=== PATIENT | female | born 1945 | race Hispanic/Latino ===

== ENCOUNTER 2019-10-02 17:28 | Emergency (ER) | payer MEDICARE, OTHER ==
[2019-10-02 19:40] LABS: CREATININE 0.9 mg/dL (0.5-1.5); POTASSIUM 3.7 mmol/L (3.5-5.1)
[2019-10-02 19:45] LABS: ALBUMIN 3.3 g/dL (3.5-5.0); BILIRUBIN,TOTAL 0.3 mg/dL (0.2-1.0); TOTAL PROTEIN, SERUM 8.2 g/dL (6.0-8.3)
[2019-10-02 19:53] LABS: BASOPHILS % (AUTO) 0.5 % (0.0-5.0); EOSINOPHILS % (AUTO) 2.5 % (0.0-8.0); LYMPHOCYTES % (AUTO) 16.9 % (21.0-51.0); MEAN CORPUSCULAR HEMOGLOBIN 29.6 pg (27.0-33.0); MEAN CORPUSCULAR HGB CONC 33.2 g/dL (32.0-36.0); MEAN CORPUSCULAR VOLUME 88.9 fL (79-99); MONOCYTES % (AUTO) 8.6 % (3.0-13.0); NEUTROPHILS % (AUTO) 70.6 % (40.0-77.0); PLATELET COUNT (AUTO) 367 K/uL (130-400); RED BLOOD CELL COUNT(AUTO) 4.16 MIL/uL (4.00-5.50); RED CELL DISTRIBUTION WIDTH 13.3 % (11.0-15.5); WHITE BLOOD COUNT (AUTO) 11.6 K/uL (4.8-10.8)
[2019-10-02] MEDS ORDERED: CLINDAMYCIN HCL 150 MG CAP ONE (20:40)
== END 2019-10-02 20:46 | disposition home or self-care (01) ==
LOC: EDH 17:28
DX: L03.115 Cellulitis of right lower limb (principal); E11.9 Type 2 diabetes mellitus without complications; I10 Essential (primary) hypertension; E78.00 Pure hypercholesterolemia, unspecified; Z98.890 Other specified postprocedural states; Z88.6 Allergy status to analgesic agent
CPT/HCPCS: 36415; 80053; 85025; 85651; 86140; 87070; 87076; 87077; 87186; 93971

== ENCOUNTER → 2019-11-18 | Outpatient (CLI) | payer MEDICARE | END | disposition home or self-care (01) | LOC: RAH 09:06 | PROVIDERS: ATTEND Family Medicine | DX: K76.0 Fatty (change of) liver, not elsewhere classified (principal); N28.1 Cyst of kidney, acquired; Z90.49 Acquired absence of other specified parts of digestive tract | CPT/HCPCS: 76700 ==

== ENCOUNTER 2024-02-23 15:57 | Inpatient (IN) | payer MEDICARE, OTHER ==
[~2024-02-23] VITALS: Ht 165.1 cm; Wt 95.3 kg
[2024-02-23 17:20] LABS: BASOPHILS # (AUTO) 0.08 K/uL (0.00-0.20); BASOPHILS % (AUTO) 0.4 % (0.0-5.0); EOSINOPHILS # (AUTO) 0.08 K/uL (0.00-0.70); EOSINOPHILS % (AUTO) 0.4 % (0.0-8.0); HEMATOCRIT 36.3 % (36-48); IMMATURE GRANULOCYTE ABSOLUTE 0.08 K/uL (0-1); LYMPHOCYTES # (AUTO) 1.6 K/uL (1.0-4.8); LYMPHOCYTES % (AUTO) 8.5 % (21.0-51.0); MEAN CORPUSCULAR HEMOGLOBIN 31.4 pg (27.0-33.0); MEAN CORPUSCULAR HGB CONC 34.4 g/dL (32.0-36.0); MEAN CORPUSCULAR VOLUME 91.2 fL (79-99); MONOCYTES # (AUTO) 0.8 K/uL (0.1-1.0); MONOCYTES % (AUTO) 4.5 % (3.0-13.0); NEUTROPHILS # (AUTO) 15.7 K/uL (1.8-7.7); NEUTROPHILS % (AUTO) 85.8 % (40.0-77.0); PLATELET COUNT (AUTO) 291 K/uL (130-400); RED BLOOD CELL COUNT(AUTO) 3.98 MIL/uL (4.00-5.50); RED CELL DISTRIBUTION WIDTH 13.4 % (11.0-15.5); WHITE BLOOD COUNT (AUTO) 18.3 K/uL (4.8-10.8)
[2024-02-23 17:30] LABS: POTASSIUM 3.7 mmol/L (3.5-5.1)
[2024-02-23] MEDS ORDERED: 0.9%NACL 1000ML 1,710 ML IV ONE (17:30)
[2024-02-23 17:36] LABS: ALBUMIN 3.3 g/dL (3.5-5.0); BILIRUBIN,TOTAL 0.6 mg/dL (0.2-1.0); TOTAL PROTEIN, SERUM 7.1 g/dL (6.0-8.3)
[2024-02-23] MEDS: CEFTRIAXONE 2GM VIAL IVPB ONE (18:51)
[2024-02-23 20:45] LABS: ADD UA MICROSCOPIC YES; APPEARANCE,URINE CLEAR (CLEAR); BILIRUBIN,URINE NEGATIVE (NEGATIVE); COLOR,URINE COLORLESS (YELLOW); GLUCOSE, URINE (UA) NEGATIVE (NEGATIVE); KETONES,URINE NEGATIVE (NEGATIVE); LEUKOCYTE ESTERASE ,URINE NEGATIVE Leu/uL (NEGATIVE); NITRATE,URINE NEGATIVE (NEGATIVE); OCCULT BLOOD,URINE NEGATIVE (NEGATIVE); PROTEIN,URINE NEGATIVE (NEGATIVE); UROBILINOGEN,URINE 0.2 mg/dL (0.2-1.0)
[2024-02-23 20:46] LABS: BACTERIA,URINE FEW /HPF (None Seen); RBC,URINE 0-1 /HPF (0-1); SQUAMOUS EPITHELIAL CELL,UR RARE /HPF (0-2); WBC,URINE 0-1 /HPF (0-1)
[2024-02-23] MEDS ORDERED: DEXTROSE 50%-WATER 50 ML DISP.SYRIN IV PRN (21:30)
[2024-02-23] MEDS ORDERED: ONDANSETRON 4MG INJ IVP PRN (21:30)
[2024-02-23] MEDS ORDERED: GLUCAGON 1MG KIT 1 MG ML IM PRN (21:30)
[2024-02-23] MEDS ORDERED: ACETAMINOPHEN 325 MG TAB PO PRN (21:30)
[2024-02-23] MEDS: 0.9%NACL 1000ML 1,000 ML IV SCH (22:24)
[2024-02-23] MEDS: NEOMY SULF/BACITRA/POLYMYXIN B 1 EACH PACKET TP ONE (22:28)
[2024-02-24] VITALS (10 sets, daily range): BP systolic 130–160; BP diastolic 46–97; PULSE 60–73; RESP 16–20; O2SAT 98
[2024-02-24] MEDS ORDERED: QUET25TA36 PO (01:32)
[2024-02-24] MEDS ORDERED: ESOM20CA60 PO (01:32)
[2024-02-24] MEDS ORDERED: METO100T14 PO (01:32)
[2024-02-24] MEDS ORDERED: VALS80TA30 PO (01:32)
[2024-02-24] MEDS ORDERED: HYDR12.54 PO (01:32)
[2024-02-24] MEDS ORDERED: LEVO50CA4 PO (01:32)
[2024-02-24] MEDS ORDERED: ESCI5TAB16 PO (01:32)
[2024-02-24] MEDS ORDERED: ASPI-1197 PO (01:32)
[2024-02-24] MEDS ORDERED: AMLO-258 PO (01:32)
[2024-02-24] MEDS ORDERED: ATOR40TA69 PO (01:32)
[2024-02-24] MEDS ORDERED: CHOL2000 PO (01:36)
[2024-02-24] MEDS ORDERED: TIRZ7.5P SQ (01:36)
[2024-02-24 04:26] LABS: BASOPHILS # (AUTO) 0.08 K/uL (0.00-0.20); BASOPHILS % (AUTO) 0.5 % (0.0-5.0); EOSINOPHILS # (AUTO) 0.11 K/uL (0.00-0.70); EOSINOPHILS % (AUTO) 0.8 % (0.0-8.0); HEMATOCRIT 33.8 % (36-48); IMMATURE GRANULOCYTE ABSOLUTE 0.06 K/uL (0-1); LYMPHOCYTES # (AUTO) 2.3 K/uL (1.0-4.8); LYMPHOCYTES % (AUTO) 15.6 % (21.0-51.0); MEAN CORPUSCULAR HEMOGLOBIN 31.6 pg (27.0-33.0); MEAN CORPUSCULAR HGB CONC 35.2 g/dL (32.0-36.0); MEAN CORPUSCULAR VOLUME 89.7 fL (79-99); MONOCYTES % (AUTO) 6.5 % (3.0-13.0); NEUTROPHILS # (AUTO) 11.1 K/uL (1.8-7.7); NEUTROPHILS % (AUTO) 76.2 % (40.0-77.0); PLATELET COUNT (AUTO) 239 K/uL (130-400); RED BLOOD CELL COUNT(AUTO) 3.77 MIL/uL (4.00-5.50); RED CELL DISTRIBUTION WIDTH 13.4 % (11.0-15.5); WHITE BLOOD COUNT (AUTO) 14.6 K/uL (4.8-10.8)
[2024-02-24 04:45] LABS: BILIRUBIN,TOTAL 0.6 mg/dL (0.2-1.0); CREATININE 0.8 mg/dL (0.5-1.0); MAGNESIUM 1.6 mg/dL (1.80-2.40); TOTAL PROTEIN, SERUM 6.6 g/dL (6.0-8.3)
[2024-02-24 05:15] LABS: POTASSIUM 2.9 mmol/L (3.5-5.1)
[2024-02-24] MEDS ORDERED: POTASSIUM CHLORIDE 10% ELIXIR 20 MEQ/15 ML UDCUP PO PRN (05:30)
[2024-02-24] MEDS: POTASSIUM CHLORIDE 20MEQ/100ML 100 ML IV PRN (05:44)
[2024-02-24] MEDS: KCL 20 MEQ ERTAB PO PRN (05:45)
[2024-02-24] MEDS: MAGNESIUM 2GM PREMIX 50ML 50 ML IV PRN (05:45)
[2024-02-24] MEDS: INSULIN HUMULIN R 100 UNIT/ML 3ML SQ SCH (06:04)
[2024-02-24] MEDS: ENOXAPARIN SODIUM 60 MG/0.6 ML SQ SCH (09:04)
[2024-02-24] MEDS ORDERED: IOHEXOL-350 75 ML VIAL IV ONE (10:30)
[2024-02-24 11:18] LABS: AMYLASE 66 U/L (25-115)
[2024-02-24] MEDS: CEFTRIAXONE 2GM VIAL IVPB SCH (16:43)
[2024-02-24] MEDS: QUETIAPINE FUMARATE 25 MG TAB PO SCH (20:24)
[2024-02-24] MEDS: ATORVASTATIN 40 MG TABLET PO SCH (20:24)
[2024-02-24] MEDS: METOPROLOL TARTRATE 50 MG TAB PO SCH (20:24)
[2024-02-24] MEDS: Vitamin D3 50 MCG PO SCH (20:26)
[2024-02-24] MEDS ORDERED: NON-FORMULARY MEDICATION 1 EACH (Metoprolol Tartrate 100 MG) PO SCH (21:00)
[2024-02-25] VITALS (7 sets, daily range): BP systolic 109–157; BP diastolic 41–73; PULSE 60–81; RESP 16–18; O2SAT 96–98
[2024-02-25 04:01] LABS: BASOPHILS # (AUTO) 0.07 K/uL (0.00-0.20); BASOPHILS % (AUTO) 0.7 % (0.0-5.0); EOSINOPHILS # (AUTO) 0.39 K/uL (0.00-0.70); EOSINOPHILS % (AUTO) 3.9 % (0.0-8.0); IMMATURE GRANULOCYTE ABSOLUTE 0.04 K/uL (0-1); LYMPHOCYTES # (AUTO) 2.8 K/uL (1.0-4.8); LYMPHOCYTES % (AUTO) 27.8 % (21.0-51.0); MEAN CORPUSCULAR HEMOGLOBIN 31.1 pg (27.0-33.0); MEAN CORPUSCULAR HGB CONC 35.2 g/dL (32.0-36.0); MEAN CORPUSCULAR VOLUME 88.5 fL (79-99); MONOCYTES # (AUTO) 0.9 K/uL (0.1-1.0); MONOCYTES % (AUTO) 8.7 % (3.0-13.0); NEUTROPHILS # (AUTO) 5.8 K/uL (1.8-7.7); NEUTROPHILS % (AUTO) 58.5 % (40.0-77.0); PLATELET COUNT (AUTO) 251 K/uL (130-400); RED BLOOD CELL COUNT(AUTO) 3.73 MIL/uL (4.00-5.50); RED CELL DISTRIBUTION WIDTH 13.6 % (11.0-15.5); WHITE BLOOD COUNT (AUTO) 9.9 K/uL (4.8-10.8)
[2024-02-25 04:31] LABS: BILIRUBIN,DIRECT 0.1 mg/dL (0.0-0.3); BILIRUBIN,TOTAL 0.6 mg/dL (0.2-1.0); CREATININE 0.7 mg/dL (0.5-1.0); MAGNESIUM 1.8 mg/dL (1.80-2.40); POTASSIUM 3.5 mmol/L (3.5-5.1); THYROID STIMULATING HORMONE 1.48 uIU/mL (0.36-3.74); TOTAL PROTEIN, SERUM 6.5 g/dL (6.0-8.3)
[2024-02-25] MEDS: LEVOTHYROXINE 50 MCG TABLET PO SCH (05:40)
[2024-02-25] MEDS ORDERED: NON-FORMULARY MEDICATION 1 EACH (Levothyroxine Sodium (Levothyroxine) 50 MCG) PO SCH (07:30)
[2024-02-25] MEDS: POLYETHYLENE GLYCOL 3350 17 GM POWD.PACK PO SCH (08:48)
[2024-02-25] MEDS: AMLODIPINE 5 MG TAB PO SCH (08:48)
[2024-02-25] MEDS: PANTOPRAZOLE 40 MG TAB DR PO SCH (08:49)
[2024-02-25] MEDS: CITALOPRAM 20 MG TABLET PO SCH (08:49)
[2024-02-25] MEDS: HYDROCHLOROTHIAZIDE 25 MG TABLET PO SCH (08:49)
[2024-02-25] MEDS: LOSARTAN 50 MG TABLET PO SCH (08:49)
[2024-02-25] MEDS: LACTULOSE 20 GM/30 ML UDCUP PO SCH (08:50)
[2024-02-25] MEDS: ASPIRIN 81MG CHEW TAB PO SCH (08:50)
[2024-02-25] MEDS ORDERED: ESCITALOPRAM OXALATE 5 MG PO SCH (09:00)
[2024-02-25] MEDS ORDERED: VALSARTAN 80 MG PO SCH (09:00)
[2024-02-25] MEDS ORDERED: NON-FORMULARY MEDICATION 1 EACH (Amlodipine Besylate 10 MG) PO SCH (09:00)
[2024-02-25] MEDS ORDERED: ESOMEPRAZOLE MAGNESIUM 20 MG PO SCH (09:00)
[2024-02-25] MEDS ORDERED: NON-FORMULARY MEDICATION 1 EACH (Hydrochlorothiazide 12.5 MG) PO SCH (09:00)
[2024-02-25] MEDS: NICOTINE 14 MG/ 24 HR PATCH TD SCH (14:59)
[2024-02-26] VITALS: BP 147/86; PULSE 66; RESP 20
[2024-02-26] MEDS ORDERED: LACTULOSE 20 GM/30 ML UDCUP PO PRN (01:00)
[2024-02-26 04:00] VITALS: BP 142/59; PULSE 65; RESP 19
[2024-02-26 05:24] LABS: HEMATOCRIT 33.9 % (36-48); MEAN CORPUSCULAR HEMOGLOBIN 31.5 pg (27.0-33.0); MEAN CORPUSCULAR HGB CONC 34.5 g/dL (32.0-36.0); MEAN CORPUSCULAR VOLUME 91.4 fL (79-99); RED BLOOD CELL COUNT(AUTO) 3.71 MIL/uL (4.00-5.50); RED CELL DISTRIBUTION WIDTH 13.4 % (11.0-15.5); WHITE BLOOD COUNT (AUTO) 9.1 K/uL (4.8-10.8)
[2024-02-26 05:48] LABS: CREATININE 0.8 mg/dL (0.5-1.0); MAGNESIUM 2.2 mg/dL (1.80-2.40); POTASSIUM 3.3 mmol/L (3.5-5.1)
[2024-02-26 08:00] VITALS: BP 157/59; PULSE 57; RESP 17; O2SAT 96
[2024-02-26 12:00] VITALS: BP 151/58; PULSE 63; RESP 17
[2024-03-02] MEDS ORDERED: MOUNJARO 7.5 MG SQ SCH (09:00)
== END 2024-02-26 18:20 | disposition home or self-care (01) | DRG 74 ==
LOC: EDH 15:57 → EDHIP 21:11 → 4DH 02-24 00:04
PROVIDERS: ADMIT Internal Medicine Infectious Disease; ATTEND Internal Medicine Infectious Disease
DX: G90.8 Other disorders of autonomic nervous system (principal); E11.9 Type 2 diabetes mellitus without complications; I10 Essential (primary) hypertension; E03.9 Hypothyroidism, unspecified; F03.90 Unspecified dementia, unspecified severity, without behavioral disturbance, psychotic disturbance, mood disturbance, and anxiety; K57.30 Diverticulosis of large intestine without perforation or abscess without bleeding; N28.1 Cyst of kidney, acquired; D72.829 Elevated white blood cell count, unspecified; K42.9 Umbilical hernia without obstruction or gangrene; W18.30XA Fall on same level, unspecified, initial encounter; E83.42 Hypomagnesemia; F17.210 Nicotine dependence, cigarettes, uncomplicated; E87.6 Hypokalemia; K59.00 Constipation, unspecified; S80.211A Abrasion, right knee, initial encounter; S80.212A Abrasion, left knee, initial encounter; Y93.89 Activity, other specified; Y92.89 Other specified places as the place of occurrence of the external cause; Y99.8 Other external cause status
CPT/HCPCS: 36415; 70450; 71045; 72125; 73564; 74178; 80048; 80053; 80061; 80076; 81001; 82150; 82550; 82948; 83605; 83690; 83735; 84145; 84439; 84443; 84484; 85025; 85027; 87040; 93005; 96365; G0378; J0696; J1650; J3475; J3480; Q9967